=== PATIENT | male | born 1985 | race Caucasian/White ===

== ENCOUNTER 2018-02-05 21:15 | Emergency (ER) | payer OTHER ==
[~2018-02-05] VITALS: Ht 172.7 cm; Wt 107.5 kg
[~2018-02-05 21:15] MED LIST: BACLOFEN10 M1 PO; BENZONATATE200 M1 PO; CYCLOBENZAPRINE10 M1 PO; HYDROCODON-ACE1 EAC2 PO; IBUPROFEN600 M1 PO; IBUPROFEN800 M1 PO; NEURONTIN100 M1 PO; PREDNISONE20 M1 PO; PROVENTIL HFA6.7 GM INH; ULTRAM50 M1 PO
[2018-02-05 22:17] VITALS: BP 123/77
--- NOTE | 2018-02-05 23:38 | ED INFLUENZA/URI COMPLAINT ---
History of Present Illness General Chief Complaint: Upper Respiratory Sx/Fever Stated Complaint: SORE THROAT,CHILLS Source: patient Exam Limitations: no limitations Vital Signs & Intake/Output Vital Signs & Intake/Output Vital Signs Date Time Temp Pulse Resp B/P B/P Pulse O2 O2 Flow FiO2 Mean Ox Delivery Rate 02/05 2217 98.1 78 18 123/77 96 Room Air ED Intake and Output 02/06 0000 02/05 1200 Intake Total Output Total Balance Patient 237 lb Weight Weight Standing Scale Measurement Method Allergies Coded Allergies: No Known Allergies (10/27/16) Reconcile Medications Albuterol Sulfate (Proventil Hfa) 90 MCG HFA.AER.AD 2 PUF INH Q4 SOB/COUGH Baclofen 10 MG TABLET 1 TAB PO TIDPRN PRN muscle spasm/strain Benzonatate 200 MG CAPSULE 1 CAP PO TIDPRN COUGH Codeine Phosphate/Guaifenesi (Cheratussin AC Syrup) 10 MG-100 MG/5 ML LIQUID 10 ML PO Q6H PRN COUGH Cyclobenzaprine HCl 10 MG TABLET 1 TAB PO TID SPASMS Gabapentin (Neurontin) 100 MG CAPSULE 1 CAP PO TID radiculopathy Hydrocodone/Acetaminophen (Hydrocodon-Acetaminophen 5-325) 5 MG-325 MG TABLET 1-2 TAB PO Q4-6 PRN PRN PAIN Ibuprofen 800 MG TABLET 1 TAB PO TID PRN pain Ibuprofen 800 MG TABLET 1 TAB PO TID PAIN Ibuprofen 600 MG TABLET 1 TAB PO Q6PRN PRN pain with food Prednisone 20 MG TABLET 1 TAB PO BID radiculopathy Tramadol HCl (Ultram) 50 MG TABLET 1-2 TAB PO Q6PRN PRN severe pain Triage Note: RECEIVED 32 YO MALE C/O FEELING SICK X 3 DAYS WITH PRODUCTIVE COUGH WITH DARK PHLEM, SORE THROAT, FEVERS, HOT AND COLD CHILLS. NO N/V OR ABDOMINAL PAIN Triage Nurses Notes Reviewed? yes Onset: Abrupt Duration: day(s): (2-3), constant, continues in ED, getting worse Timing: single episode today Severity: mild, moderate Severity Numbers: 7 Prior Episodes/Possible Cause: no prior episodes No Modifying Factors: none Associated Symptoms: cough, fever/chills, muscle aches, nasal congestion, nasal drainage, sore throat HPI: 32 year old male no pmh presents for eval of cough, congestion, rhinorrhea, sore throat and body aches. Symptoms started about 3 days ago and have been persistent. He reports cough productive of dark colored sputum. He is a smoker. He denies shortness of breath. He is able to tolerate fluids. He states that his voice is been raspy and he has a sore throat. No chest pain, hemoptysis nausea vomiting diarrhea. He has not taken any medicine for this headache. No fever. He does not of any history of underlying lung disease. (Branden Cardoza) Past History Travel History Traveled to [place] past 21 day No Medical History Any Pertinent Medical History? see below for history Neurological: NONE EENT: NONE Cardiovascular: NONE Respiratory: NONE Gastrointestinal: NONE Hepatic: NONE Renal: NONE Musculoskeletal: NONE Psychiatric: NONE Endocrine: NONE Blood Disorders: NONE Cancer(s): NONE CLINICAL SERVICES CONSULTANT/Reproductive: NONE Surgical History Surgical History: vasectomy Psychosocial History What is your primary language Polish Tobacco Use: Current Daily Use Daily Tobacco Use Amount/Type: => 5 Cigarettes daily Family History Hx Contributory? No (Branden Cardoza) Review of Systems Review of Systems Constitutional: Reports: no symptoms. EENTM: Reports: see HPI, nasal congestion, throat pain. Respiratory: Reports: see HPI, cough, sputum production. Cardiovascular: Reports: no symptoms. GI: Reports: no symptoms. Genitourinary: Reports: no symptoms. Musculoskeletal: Reports: muscle pain. Skin: Reports: no symptoms. Neurological/Psychological: Reports: no symptoms. Hematologic/Endocrine: Reports: no symptoms. Immunologic/Allergic: Reports: no symptoms. All Other Systems: Reviewed and Negative (Branden Cardoza) Physical Exam Physical Exam General Appearance: well developed/nourished, no apparent distress, alert, awake Head: atraumatic, normal appearance Eyes: Bilateral: normal appearance, PERRL, EOMI. Ears, Nose, Throat: moist mucous membrane, hearing grossly normal, Tympanic normal, pharynx normal, nasal congestion, nasal drainage (clear), muffled/hoarse voice Neck: normal inspection, supple, full range of motion Respiratory: normal breath sounds, chest non-tender, no respiratory distress, lungs clear Cardiovascular: regular rate/rhythm, normal peripheral pulses Peripheral Pulses: 2+ radial (R), 2+ radial (L) Gastrointestinal: soft, non-tender Back: normal inspection, normal range of motion, no vertebral tenderness Extremities: normal inspection, normal range of motion, no edema Neurologic/Psych: no motor/sensory deficits, awake, alert, oriented x 3, normal gait Skin: intact, normal color, warm/dry Lymphatic: no anterior cervical choco Core Measures Sepsis Present: No Sepsis Focused Exam Completed? No (Branden Cardoza) Progress Differential Diagnosis: influenza, otitis, pneumonia, pharyngitis, sinusitis, acute bronchitis, viral upper respiratory infection Plan of Care: Orders Procedure Date/time Status RAPID VIRAL INFLUENZA A 02/06 2120 Complete THROAT CULTURE W/QUICK STREP 02/06 2120 Active Microbiology 02/06 2224 NASOPHARYN: Influenza Virus A & B Rapid Smear - COMP Patient seen and evaluated. He currently is afebrile vital signs are stable. Influenza rapid strep negative. No signs of bacterial infection on exam. Chest x-ray is negative for pneumonia. Patient was medicated with ibuprofen here and is feeling better. He is able tolerate fluids. Suspect viral etiology. Advised rest and fluids Tylenol ibuprofen. Discussed return precautions including signs of bacterial infection. Follow-up with a primary care doctor this week. Discussed return precautions patient appears well he agrees. Diagnostic Imaging: Viewed by Me: Radiology Read. Discussed w/RAD: Radiology Read. CXR Impression: PATIENT: PAULINE ZIEGLER PRESENT AGE: 32 PATIENT ACCOUNT NO: [id number] : 83 LOCATION: [facility] ORDERING PHYSICIAN: Branden HOOKS SERVICE DATE: 02/05/187 EXAM TYPE: RAD - XRY-CHEST XRAY, TWO VIEWS EXAMINATION: CHEST 2 VIEWS CLINICAL INFORMATION: Cough, fever. COMPARISON: December 20, 2017. TECHNIQUE: PA and lateral views of the chest were obtained. FINDINGS: The cardiac silhouette is not enlarged. The mediastinal and hilar contours are unremarkable. There are neither pleural effusions nor pneumothoraces. There are no consolidations. The osseous structures are unremarkable. IMPRESSION: No evidence for acute disease. DICTATED BY: Mateo Palmer MD DATE/TIME DICTATED:02/05/182344 GROOVER AND TURNER:SUNIL DATE/TIME TRANSCRIBED:02/05/182344 CONFIDENTIAL, DO NOT COPY WITHOUT APPROPRIATE AUTHORIZATION. <Electronically signed in Other Vendor System> Initial ED EKG: none (Branden Cardoza) Departure Departure Disposition: HOME OR SELF CARE Condition: Stable Clinical Impression Primary Impression: Viral upper respiratory infection Referrals: Patient Has No Primary Care Dr (PCP/Family) Additional Instructions: rest and drink plenty of fluids. tylenol/ibuprofen as needed for pain or fever. flonase for congestion. cheratussin for cough this may cause drowsiness. Make a follow-up with your primary care doctor for this week. Monitor symptoms closely return with any concerns. Departure Forms: Customer Survey General Discharge Information Prescriptions: Current Visit Scripts Ibuprofen 1 TAB PO TID PRN pain #30 TAB Codeine Phosphate/Guaifenesi (Cheratussin AC Syrup) 10 ML PO Q6H PRN COUGH #240 ML (Branden Cardoza) PA/SEMI CONDUCTOR ASSEMBLER Co-Sign Statement Statement: ED Attending supervision documentation- [] I saw and evaluated the patient. I have also reviewed all the pertinent lab results and diagnostic results. I agree with the findings and the plan of care as documented in the PA's/SEMI CONDUCTOR ASSEMBLER's documentation. [x] I have reviewed the ED Record and agree with the PA's/SEMI CONDUCTOR ASSEMBLER's documentation. [] Additions or exceptions (if any) to the PAs/SEMI CONDUCTOR ASSEMBLER's note and plan are summarized below: [] (Joan VITAL,Cristofer Elizalde)
--- NOTE | 2018-02-05 23:52 | RADIOLOGY REPORT ---
EXAMINATION: CHEST 2 VIEWS CLINICAL INFORMATION: Cough, fever. COMPARISON: December 20, 2017. TECHNIQUE: PA and lateral views of the chest were obtained. FINDINGS: The cardiac silhouette is not enlarged. The mediastinal and hilar contours are unremarkable. There are neither pleural effusions nor pneumothoraces. There are no consolidations. The osseous structures are unremarkable. IMPRESSION: No evidence for acute disease.
[2018-02-06] MEDS ORDERED: IBUPROFEN800 M1 PO (00:05)
[2018-02-06] MEDS ORDERED: CHERATUSSIN AC118 M1 PO ×2 (00:06→00:08)
== END 2018-02-06 00:14 ==
LOC: ERH 21:15
DX: J06.9 Acute upper respiratory infection, unspecified (principal)
CPT/HCPCS: 71046; 87804; 87804-59